=== PATIENT | male | born 1945 | race Caucasian/White ===

== ENCOUNTER 2019-02-11 17:28 | Emergency (ER) | payer BC ==
[2019-02-11 18:03] VITALS: BMI 36.2
[2019-02-11] MEDS ORDERED: LIPITOR40 MG PO (18:06)
[2019-02-11] MEDS ORDERED: GLUCOPHAGE1000 MG PO (18:06)
[2019-02-11] MEDS ORDERED: LISINOPRIL40 MG PO (18:06)
[2019-02-11] MEDS ORDERED: FLOMAX0.4 MG PO (18:07)
[2019-02-11] MEDS ORDERED: NORVASC10 MG PO (18:07)
[2019-02-11] MEDS ORDERED: NIACIN250 M1 PO (18:08)
[2019-02-11] MEDS ORDERED: FISH OIL 1,0001 CA1 PO (18:08)
[2019-02-11] MEDS ORDERED: EFFEXOR50 MG PO (18:08)
[2019-02-11] MEDS ORDERED: BUPROPION HCL100 MG PO (18:08)
[2019-02-11] MEDS ORDERED: VITAMIN B-12250 MC3 PO (18:09)
[2019-02-11] MEDS ORDERED: TORADOL10 MG PO (20:23)
[2019-02-11 21:22] VITALS: BP 139/73
== END 2019-02-11 21:23 | disposition home or self-care (01) ==
LOC: D.ER 17:28
DX: M70.61 Trochanteric bursitis, right hip (principal)